=== PATIENT | female | born 1950 | race Caucasian/White ===

== ENCOUNTER → 2016-07-19 | Outpatient (CLI) | payer OTHER | END | disposition home or self-care (01) | LOC: CDC 10:18 | DX: Z01.810 Encounter for preprocedural cardiovascular examination (principal) | CPT/HCPCS: 93000 ==

== ENCOUNTER 2016-08-01 03:49 | Emergency (ER) | payer OTHER ==
[~2016-08-01] VITALS: Ht 165.1 cm; Wt 100.6 kg
[2016-08-01] MEDS ORDERED: SERTRALINE HCL50 MG PO (03:59)
[2016-08-01] MEDS ORDERED: DEXILANT60 MG PO (03:59)
[2016-08-01] MEDS ORDERED: SPIRONOLACTONE25 MG PO (04:00)
[2016-08-01] MEDS ORDERED: METOPROLOL SUCC50 MG PO (04:00)
[2016-08-01] MEDS ORDERED: TRAMADOL HCL50 MG PO (04:01)
[2016-08-01] MEDS ORDERED: ASPIRIN81 M2 PO (04:01)
[2016-08-01] MEDS ORDERED: PLAQUENIL200 MG PO (04:02)
[2016-08-01] MEDS ORDERED: FLONASE ALLERG9.9 ML BOTH NARES (04:03)
[2016-08-01] MEDS ORDERED: LEVOTHYROXINE100 MCG PO (04:03)
[2016-08-01] MEDS ORDERED: URELLE,DARPA1 TABLET PO (04:04)
[2016-08-01] MEDS ORDERED: ERGOCALCIF50000 UNIT PO (04:04)
[2016-08-01] MEDS ORDERED: CIPRO500 MG PO (04:06)
[2016-08-01] MEDS ORDERED: SKELAXIN800 MG PO (04:50)
[2016-08-01 05:22] VITALS: BP 127/82
== END 2016-08-01 05:26 | disposition home or self-care (01) ==
LOC: EME 03:49
DX: S33.5XXA Sprain of ligaments of lumbar spine, initial encounter (principal); W10.9XXA Fall (on) (from) unspecified stairs and steps, initial encounter; I10 Essential (primary) hypertension; Z79.82 Long term (current) use of aspirin; Z88.6 Allergy status to analgesic agent; Z88.2 Allergy status to sulfonamides
CPT/HCPCS: 72100; 99281; 99284

== ENCOUNTER 2016-12-21 07:35 | Day surgery (SDC) | payer OTHER ==
[~2016-12-21] VITALS: Ht 165.1 cm; Wt 104.3 kg
[~2016-12-21 07:35] MED LIST: ASPIRIN81 M2 PO; CIPRO500 MG PO; DEXILANT60 MG PO; ERGOCALCIF50000 UNIT PO; FLONASE ALLERG9.9 ML BOTH NARES; LEVOTHYROXINE100 MCG PO; METOPROLOL SUCC50 MG PO; PLAQUENIL200 MG PO; SERTRALINE HCL50 MG PO; SKELAXIN800 MG PO; SPIRONOLACTONE25 MG PO; TRAMADOL HCL50 MG PO; URELLE,DARPA1 TABLET PO; WELLBUTRIN SR150 MG PO; ZOLOFT100 MG PO
[2016-12-26] MEDS ORDERED: SYNTHROID125 MCG PO (14:20)
[2016-12-26] MEDS ORDERED: ERGOCALCIF50000 UNIT PO (14:22)
[2016-12-26] MEDS ORDERED: DEXILANT60 MG PO (14:23)
[2016-12-26] MEDS ORDERED: ALDACTONE25 MG PO (14:24)
[2016-12-26] MEDS ORDERED: LO-DOSE ASPIRIN81 M1 PO (14:25)
[2016-12-26] MEDS ORDERED: TOPROL XL50 MG PO (14:25)
[2016-12-26] MEDS ORDERED: ULTRAM50 MG PO (14:26)
== END 2016-12-21 09:05 | disposition home or self-care (01) ==
LOC: PAIN 07:35 → SDC 08:15 → PAIN 09:05
DX: M47.26 Other spondylosis with radiculopathy, lumbar region (principal); M06.9 Rheumatoid arthritis, unspecified; K21.9 Gastro-esophageal reflux disease without esophagitis; I10 Essential (primary) hypertension; E03.9 Hypothyroidism, unspecified; E21.0 Primary hyperparathyroidism; E55.9 Vitamin D deficiency, unspecified; Z79.82 Long term (current) use of aspirin; Z79.891 Long term (current) use of opiate analgesic; Z88.2 Allergy status to sulfonamides
CPT/HCPCS: J1030; J2250; J3010; S0020

== ENCOUNTER 2016-12-28 07:33 | Day surgery (SDC) | payer OTHER ==
[~2016-12-28] VITALS: Ht 165.1 cm; Wt 104.3 kg
[~2016-12-28 07:33] MED LIST changes: +ALDACTONE25 MG PO; +LO-DOSE ASPIRIN81 M1 PO; +SYNTHROID125 MCG PO; +TOPROL XL50 MG PO; +ULTRAM50 MG PO
== END 2016-12-28 09:18 | disposition home or self-care (01) ==
LOC: PAIN 07:33 → SDC 08:15 → PAIN 09:18
DX: M47.26 Other spondylosis with radiculopathy, lumbar region (principal); M06.9 Rheumatoid arthritis, unspecified; E03.9 Hypothyroidism, unspecified; E21.0 Primary hyperparathyroidism; Z79.82 Long term (current) use of aspirin; Z79.891 Long term (current) use of opiate analgesic; Z88.0 Allergy status to penicillin
CPT/HCPCS: J1030; J2250; J3010; S0020

== ENCOUNTER 2017-02-01 07:32 | Day surgery (SDC) | payer OTHER ==
[~2017-02-01] VITALS: Ht 165.1 cm; Wt 100.0 kg
[~2017-02-01 07:32] MED LIST changes: +FOLIC ACID0.4 MG PO; +METHOTREXATE2.5 MG PO
[2017-02-01] MEDS ORDERED: ROXICODONE5 MG PO (07:53)
== END 2017-02-01 09:06 | disposition home or self-care (01) ==
LOC: PAIN 07:32 → SDC 08:00 → PAIN 08:00
DX: M53.3 Sacrococcygeal disorders, not elsewhere classified (principal); M46.1 Sacroiliitis, not elsewhere classified; M47.26 Other spondylosis with radiculopathy, lumbar region; M06.9 Rheumatoid arthritis, unspecified; E03.9 Hypothyroidism, unspecified; E21.0 Primary hyperparathyroidism; M79.7 Fibromyalgia; Z79.82 Long term (current) use of aspirin; Z79.891 Long term (current) use of opiate analgesic; Z88.0 Allergy status to penicillin
CPT/HCPCS: J1030; J2250; J3010; S0020

== ENCOUNTER 2017-05-10 07:05 | Day surgery (SDC) | payer OTHER ==
[~2017-05-10] VITALS: Ht 165.1 cm; Wt 104.3 kg
[~2017-05-10 07:05] MED LIST changes: +ROXICODONE5 MG PO
== END 2017-05-10 11:05 | disposition home or self-care (01) ==
LOC: PAIN 07:05 → SDC 07:30 → PAIN 07:30
DX: M47.26 Other spondylosis with radiculopathy, lumbar region (principal); M48.061 Spinal stenosis, lumbar region without neurogenic claudication; M06.9 Rheumatoid arthritis, unspecified; M79.1 Myalgia; I10 Essential (primary) hypertension; E03.9 Hypothyroidism, unspecified; K21.9 Gastro-esophageal reflux disease without esophagitis; Z88.0 Allergy status to penicillin
CPT/HCPCS: J1100; J2250; J3010

== ENCOUNTER 2017-05-10 07:26 | Emergency (ER) | payer OTHER ==
[~2017-05-10] VITALS: Ht 165.1 cm; Wt 102.1 kg
[2017-05-10 09:09] VITALS: BP 135/63
== END 2017-05-10 09:10 | disposition home or self-care (01) ==
LOC: EME 07:26
DX: S40.011A Contusion of right shoulder, initial encounter (principal); I10 Essential (primary) hypertension; M79.7 Fibromyalgia; F41.9 Anxiety disorder, unspecified; F32.9 Major depressive disorder, single episode, unspecified; W19.XXXA Unspecified fall, initial encounter; Y92.238 Other place in hospital as the place of occurrence of the external cause; Z79.82 Long term (current) use of aspirin; Z85.9 Personal history of malignant neoplasm, unspecified; Z88.6 Allergy status to analgesic agent; Z88.2 Allergy status to sulfonamides
CPT/HCPCS: 73030; 99281; 99284

== ENCOUNTER 2017-07-19 07:39 | Day surgery (SDC) | payer OTHER ==
[~2017-07-19] VITALS: Ht 165.1 cm; Wt 100.3 kg
[~2017-07-19 07:39] MED LIST changes: +NEURONTIN100 MG PO; +NEURONTIN300 MG PO
== END 2017-07-19 09:20 | disposition home or self-care (01) ==
LOC: PAIN 07:39 → SDC 08:15 → PAIN 09:20
DX: M47.816 Spondylosis without myelopathy or radiculopathy, lumbar region (principal); M54.16 Radiculopathy, lumbar region; M48.061 Spinal stenosis, lumbar region without neurogenic claudication; M79.1 Myalgia; M06.9 Rheumatoid arthritis, unspecified; M53.3 Sacrococcygeal disorders, not elsewhere classified; I10 Essential (primary) hypertension; E21.0 Primary hyperparathyroidism; E55.9 Vitamin D deficiency, unspecified; K21.9 Gastro-esophageal reflux disease without esophagitis; Z86.73 Personal history of transient ischemic attack (TIA), and cerebral infarction without residual deficits; Z88.0 Allergy status to penicillin; Z88.2 Allergy status to sulfonamides; Z79.82 Long term (current) use of aspirin
CPT/HCPCS: J1100; J2250

== ENCOUNTER → 2017-12-27 | Outpatient (CLI) | payer OTHER, MEDICARE | END | disposition home or self-care (01) | LOC: CDC 09:14 | DX: Z01.810 Encounter for preprocedural cardiovascular examination (principal) | CPT/HCPCS: 93000 ==